=== PATIENT | female | born 1990 | race American Indian/Alaskan Native ===

== ENCOUNTER 2017-03-09 09:17 | Emergency (ER) | payer OTHER ==
[2017-03-09 09:55] LABS: Basophils % (Auto) 0.7 % (0.0-1.8); Eosinophils % (Auto) 3.3 % (0.0-4.3); Hematocrit 39.6 % (30.3-42.9); Hemoglobin 12.8 gm/dl (10.1-14.3); Mean Corpuscular HGB Conc 32 % (30-34); Mean Corpuscular Volume 76 fl (79-97); Platelet Count 181 K/mm3 (140-440); Red Blood Count 5.19 M/mm3 (3.65-5.03); Red Cell Distribution Width 14.9 % (13.2-15.2)
[2017-03-09 10:00] LABS: Mean Corpuscular Hemoglobin 25 pg (28-32)
[2017-03-09] MEDS ORDERED: ATROVENT IH ONE (10:02)
[2017-03-09] MEDS ORDERED: PROVENTIL IH ONE (10:02)
[2017-03-09 10:14] LABS: Anion Gap 18 mmol/L; BUN/Creatinine Ratio 8.88; Blood Urea Nitrogen 8 mg/dL (7-17); Carbon Dioxide 23 mmol/L (22-30); Chloride 104.3 mmol/L (98-107); Glucose 81 mg/dL (65-100); Potassium 4.3 mmol/L (3.6-5.0); Sodium 141 mmol/L (137-145)
--- NOTE | 2017-03-09 10:22 | XRay Report ---
ROUTINE CHEST, TWO VIEWS: HISTORY: Shortness of breath. The trachea, heart, mediastinal contour, lung worthy and bony thorax are unremarkable. IMPRESSION: Unremarkable chest x-ray.
[2017-03-09 15:41] VITALS: BP 129/85
--- NOTE | 2017-03-09 15:49 | Emergency Department Report ---
ED Asthma HPI - General Chief Complaint: Adult Asthma Stated Complaint: ASTHMA/CHEST PAIN/WHEEZING/COUGH Time Seen by Provider: 03/09/17 15:47 Source: patient, RN notes reviewed Mode of arrival: Ambulatory Limitations: No Limitations - History of Present Illness Initial Comments: This is a 26-year-old female. She is previously unknown to me. She does not have a local primary care doctor. The patient presents to the ER complaining of chest tightness, wheezing, cough and mucus production. This has been going on for the past 3 days. The tightness does not radiate to the back, arms and neck. There is no vomiting or diaphoresis. There is no leg pain. There is no leg swelling. No recent surgeries, no recent trips greater than 4 hours. Has an implantable control device, and reports that she is not . Reports her symptoms are similar to prior episodes of asthma exacerbation, and she also admits to consuming cannabis and tobacco. Last "asthma attack" was 3 years ago. MD Complaint: "asthma attack", shortness of breath, wheezing -: Gradual Asthma History: childhood onset Severity: moderate Context: ran out of meds, medication non-compliance, smoke exposure Associated Symptoms: dry cough, chest pain - Related Data Current Asthma Therapy: none Previous Rx's Medication Instructions Recorded Last Taken Type Albuterol Sulfate [Proair 90 mcg IH Q4HR PRN #2 aer.[email or web address] 03/09/17 Unknown Rx Respiclick] Benzonatate [Tessalon Perles] 100 mg PO Q8HR PRN #30 capsule 03/09/17 Unknown Rx Fluticasone [Flonase] 1 spray NS QDAY #1 bottle 03/09/17 Unknown Rx Ipratropium [place] [Atrovent Hfa] 12.9 gm IH Q4HR #2 hfa.aer.ad 03/09/17 Unknown Rx Allergies Allergy/AdvReac Type Severity Reaction Status Date / Time No Known Allergies Allergy Verified 03/09/17 09:29 ED Review of Systems ROS: Stated complaint: ASTHMA/CHEST PAIN/WHEEZING/COUGH Other details as noted in HPI Constitutional: denies: malaise Eyes: denies: vision change ENT: congestion Respiratory: shortness of breath, wheezing Cardiovascular: chest pain Gastrointestinal: denies: vomiting Genitourinary: denies: dysuria Musculoskeletal: denies: back pain Skin: denies: lesions Neurological: denies: weakness ED Past Medical Hx - Past Medical History Previous Medical History?: Yes Hx Asthma: Yes - Surgical History Past Surgical History?: No - Social History Smoking Status: Current Every Day Smoker Substance Use Type: Marijuana - Medications Home Medications: Home Medications Medication Instructions Recorded Confirmed Last Taken Type Albuterol Sulfate [Proair 90 mcg IH Q4HR PRN #2 aer.pow.ba 03/09/17 Unknown Rx Respiclick] Benzonatate [Tessalon Perles] 100 mg PO Q8HR PRN #30 capsule 03/09/17 Unknown Rx Fluticasone [Flonase] 1 spray NS QDAY #1 bottle 03/09/17 Unknown Rx Ipratropium [place] [Atrovent Hfa] 12.9 gm IH Q4HR #2 hfa.[email or web address] 03/09/17 Unknown Rx ED Physical Exam - General Limitations: No Limitations General appearance: alert, in no apparent distress - Head Head exam: Present: atraumatic, normocephalic - Eye Eye exam: Present: normal appearance, EOMI. Absent: nystagmus - ENT ENT exam: Present: normal exam, normal orophraynx, mucous membranes moist, normal external ear exam - Neck Neck exam: Present: normal inspection - Respiratory Respiratory exam: Present: normal lung sounds bilaterally. Absent: respiratory distress, wheezes, rales, rhonchi, stridor, chest wall tenderness, accessory muscle use, decreased breath sounds, prolonged expiratory - Cardiovascular Cardiovascular Exam: Present: regular rate, normal rhythm, normal heart sounds. Absent: bradycardia, tachycardia, irregular rhythm, systolic murmur, diastolic murmur, rubs, gallop - GI/Abdominal GI/Abdominal exam: Present: soft, normal bowel sounds. Absent: distended, tenderness, guarding, rebound, rigid, pulsatile mass - Extremities Exam Extremities exam: Present: normal inspection, full ROM, normal capillary refill. Absent: tenderness, pedal edema, joint swelling, calf tenderness - Back Exam Back exam: Present: normal inspection, full ROM. Absent: tenderness, CVA tenderness (R), CVA tenderness (L), muscle spasm, paraspinal tenderness, vertebral tenderness - Neurological Exam Neurological exam: Present: alert, oriented X3, normal gait, other (Extraocular movements intact. Tongue midline. No facial droop. Facial sensation intact to light touch in the V1, V2, V3 distribution bilaterally. 5 and 5 strength in 4 extremities.. Sensation is intact to light touch in 4 extremities.). Absent : motor sensory deficit - Psychiatric Psychiatric exam: Present: normal affect, normal mood - Skin Skin exam: Present: warm, dry, intact, normal color. Absent: rash ED Course Vital Signs 03/09/17 03/09/17 03/09/17 09:29 10:18 10:34 Temperature 99.4 F Pulse Rate 83 Pulse Rate [ 88 90 Bilateral] Respiratory 18 Rate Respiratory 16 16 Rate [Bilateral ] Blood Pressure 117/74 Blood Pressure [Right] O2 Sat by Pulse 100 Oximetry 03/09/17 15:40 Temperature Pulse Rate 64 Pulse Rate [ Bilateral] Respiratory 18 Rate Respiratory Rate [Bilateral ] Blood Pressure Blood Pressure 129/85 [Right] O2 Sat by Pulse 100 Oximetry ED Medical Decision Making - Lab Data Result diagrams: 03/09/17 09:43 03/09/17 09:43 Vital Signs 03/09/17 03/09/17 03/09/17 09:29 10:18 10:34 Temperature 99.4 F Pulse Rate 83 Pulse Rate [ 88 90 Bilateral] Respiratory 18 Rate Respiratory 16 16 Rate [Bilateral ] Blood Pressure 117/74 Blood Pressure [Right] O2 Sat by Pulse 100 Oximetry 03/09/17 15:40 Temperature Pulse Rate 64 Pulse Rate [ Bilateral] Respiratory 18 Rate Respiratory Rate [Bilateral ] Blood Pressure Blood Pressure 129/85 [Right] O2 Sat by Pulse 100 Oximetry Lab Results 03/09/17 03/09/17 Range/Units 09:43 09:43 WBC 5.0 (4.5-11.0) K/mm3 RBC 5.19 H (3.65-5.03) M/mm3 Hgb 12.8 (10.1-14.3) gm/dl Hct 39.6 (30.3-42.9) % MCV 76 L (79-97) fl MCH 25 L (28-32) pg MCHC 32 (30-34) % RDW 14.9 (13.2-15.2) % Plt Count 181 (140-440) K/mm3 Lymph % (Auto) 35.4 H (13.4-35.0) % [place] % (Auto) 9.8 H (0.0-7.3) % Eos % (Auto) 3.3 (0.0-4.3) % Baso % (Auto) 0.7 (0.0-1.8) % Lymph # 1.8 (1.2-5.4) K/mm3 [place] # 0.5 (0.0-0.8) K/mm3 Eos # 0.2 (0.0-0.4) K/mm3 Baso # 0.0 (0.0-0.1) K/mm3 Seg Neutrophils % 50.8 (40.0-70.0) % Seg Neutrophils # 2.5 (1.8-7.7) K/mm3 Sodium 141 (137-145) mmol/L Potassium 4.3 (3.6-5.0) mmol/L Chloride 104.3 (98-107) mmol/L Carbon Dioxide 23 (22-30) mmol/L Anion Gap 18 mmol/L BUN 8 (7-17) mg/dL Creatinine 0.9 (0.7-1.2) mg/dL Estimated GFR > 60 ml/min BUN/Creatinine Ratio 8.88 % Glucose 81 (65-100) mg/dL Calcium 9.0 (8.4-10.2) mg/dL Troponin T < 0.010 (0.00-0.029) ng/mL - EKG Data -: EKG Interpreted by Ct EKG shows normal: sinus rhythm, axis, intervals, QRS complexes, ST-T waves - Radiology Data Radiology results: report reviewed, image reviewed X-ray the chest is negative for acute disease - Medical Decision Making Differential diagnosis: Asthma, bronchitis, pneumonia Assessment and plan: 26-year-old female with resolved wheezing and chest tightness. She is afebrile with her showing vital signs. Symptoms have been present for 3 days. Low risk by LENARD score, low risk by heart score, low risk by well's criteria. Troponin negative, doubt acute coronary syndrome given clinical history. As per the [employer] clinical policy, myocardial infarction may be excluded with 1 set of troponins if symptoms haven't present for greater than 8 hours. The patient is instructed to discontinue tobacco consumption and cannabis consumption. She is suitable for discharge at this point in time, given resolution of wheezing, I do not believe she requires systemic steroids. Critical care attestation.: If time is entered above; I have spent that time in minutes in the direct care of this critically ill patient, excluding procedure time. ED Disposition Clinical Impression: Asthma Disposition: DC-01 TO HOME OR SELFCARE Is pt being admited?: No Does the pt Need Aspirin: No Condition: Stable Instructions: Asthma (ED) Additional Instructions: Take medications as directed. Follow up with a primary care doctor within the next 2 weeks. Discontinue consumption of tobacco, cannabis/marijuana. These agents are likely to increase symptoms. Return to the ER readily with new pain, worsened pain, migration of pain, fevers , chills, intractable nausea or vomiting, confusion, inability to tolerate liquid feeds, severe shortness of breath. Prescriptions: Albuterol Sulfate [Proair Respiclick] 90 mcg IH Q4HR PRN #2 aer.pow.ba PRN Reason: Wheezing Benzonatate [Tessalon Perles] 100 mg PO Q8HR PRN #30 capsule PRN Reason: Cough Fluticasone [Flonase] 1 spray NS QDAY #1 bottle Ipratropium [place] [Atrovent Hfa] 12.9 gm IH Q4HR #2 hfa.aer.ad Referrals: PRIMARY MD MARITO [Primary Care Provider] - 3-5 Days LEIF BORREGO MD [Staff Physician] - 3-5 Days Forms: Work/School Release Form(ED)
== END 2017-03-09 15:58 | disposition home or self-care (01) ==
LOC: ED 09:17
DX: J45.909 Unspecified asthma, uncomplicated (principal); F17.200 Nicotine dependence, unspecified, uncomplicated; F12.10 Cannabis abuse, uncomplicated
CPT/HCPCS: 36415; 71020; 80048; 84484; 85025; 93005; 93010; 94640

== ENCOUNTER 2019-03-15 07:29 | Emergency (ER) | payer SELFPAY ==
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
[2019-03-15] MEDS ORDERED: IBUPROFEN PO ONE (08:57)
[2019-03-15 09:16] VITALS: BP 140/90
== END 2019-03-15 09:16 | disposition home or self-care (01) ==
LOC: ED 07:29
DX: H10.32 Unspecified acute conjunctivitis, left eye (principal); J45.909 Unspecified asthma, uncomplicated; F17.200 Nicotine dependence, unspecified, uncomplicated

== ENCOUNTER 2019-08-06 18:31 | Emergency (ER) | payer MEDICAID ==
--- NOTE | 2019-08-06 19:27 | Emergency Department Report ---
Blank Doc - Documentation Documentation: 29-year-old female that presents with URI symptoms. This initial assessment/diagnostic orders/clinical plan/treatment(s) is/are subject to change based on patient's health status, clinical progression and re- assessment by fellow clinical providers in the ED. Further treatment and workup at subsequent clinical providers discretion. Patient/guardians urged not to elope from the ED as their condition may be serious if not clinically assessed and managed. Initial orders include: 1- Patient sent to [facility] for further evaluation and treatment 2- CXR
[2019-08-06 19:28] VITALS: BP 128/91
--- NOTE | 2019-08-06 19:54 | XRay Report ---
CHEST 2 VIEWS INDICATION: cough. COMPARISON: 03/09/2017. FINDINGS: Support devices: None. Heart: Within normal limits. Lungs/Pleura: No acute air space or interstitial disease. No significant pleural effusion. IMPRESSION: No acute findings. Signer Name: Dioni Mckeon MD Signed: 08/06/2019 7:50 PM Workstation Name: [id number]
--- NOTE | 2019-08-06 22:08 | Emergency Department Report ---
Minor Respiratory - HPI Chief Complaint: Upper Respiratory Infection Stated Complaint: FLU SYM 2WKS/SOB/BODY ACHES Time Seen by Provider: 08/06/19 19:26 Duration: 2 weeks Other History: 29-year-old -Maldivian female presents to the emergency room reporting fever, cough, vomiting, severe body aches and shortness of breath 2 weeks. Patient has a history of asthma. Patient complains of headache located frontal. She also reports greenish brownish nasal secretion. ED Review of Systems ROS: Stated complaint: FLU SYM 2WKS/SOB/BODY ACHES Other details as noted in HPI ED Past Medical Hx - Past Medical History Hx Asthma: Yes - Social History Smoking Status: Current Every Day Smoker Substance Use Type: None - Medications Home Medications: Home Medications Medication Instructions Recorded Confirmed Last Taken Type Albuterol Sulfate [Proair 90 mcg IH Q4HR PRN #2 aer.pow.ba 03/09/17 Unknown Rx Respiclick] Ipratropium [place] [Atrovent Hfa] 12.9 gm IH Q4HR #2 hfa.aer.ad 03/09/17 Unknown Rx Ofloxacin 0.3% [Ocuflox 0.3% opth] 1 - 2 drops OP TID #1 bottle 03/15/19 Unknown Rx Benzonatate [Tessalon Perles] 100 mg PO Q8HR PRN #30 capsule 08/06/19 Unknown Rx DOXYCYCLINE Hyclate [Vibramycin 100 mg PO Q12HR #28 capsule 08/06/19 Unknown Rx CAP] Fluticasone [Flonase] 1 spray NS QDAY #1 bottle 08/06/19 Unknown Rx Ibuprofen [Motrin 800 MG tab] 800 mg PO TID #30 tablet 08/06/19 Unknown Rx Minor Respiratory Exam - Exam General: Vital signs noted. No distress. Alert and acting appropriately. HEENT: Yes Moist Mucous Membranes, Yes Rhinorrhea, Yes Maxillary Tenderness, No Pharyngeal Erythema, No Pharyngeal Exudates, No Frontal Tenderness Neck: Yes Supple, No Adenopathy Lungs: Yes Good Air Exchange, Yes Cough, No Wheezes, No Ronchi, No Stridor, No Labored Respirations, No Retractions, No Use of Accessory Muscles, No Other Abnormal Lung Sounds Heart: Yes Regular, No Murmur Abdomen: Yes Normal Bowel Sounds, No Tenderness, No Peritoneal Signs Skin: No Rash, No Edema Neurologic: Alert and oriented, no deficits. Musculoskeletal: Unremarkable. ED Course Vital Signs 08/06/19 19:26 Temperature 98.8 F Pulse Rate 110 H Respiratory 20 Rate Blood Pressure 128/91 ED Medical Decision Making - Radiology Data Radiology results: report reviewed Patient: RODERICK HARDING MR#: [id number] : 1990 Acct:[id number] Age/Sex: 29 / F ADM Date: 08/06/19 Loc: ED Attending Dr: Ordering Physician: LINDEN RODRIGUEZ NP Date of Service: 08/06/19 Procedure(s): XR chest routine 2V Accession Number(s): [id number] cc: LINDEN RODRIGUEZ NP Fluoro Time In Minutes: CHEST 2 VIEWS INDICATION: cough. COMPARISON: 03/09/2017. FINDINGS: Support devices: None. Heart: Within normal limits. Lungs/Pleura: No acute air space or interstitial disease. No significant pleural effusion. IMPRESSION: No acute findings. Signer Name: Dioni Mckeon MD Signed: 08/06/2019 7:50 PM Workstation Name: [id number] Transcribed By: ES Dictated By: Dioni Mckeon MD Electronically Authenticated By: Dioni Mckeon MD Signed Date/Time: 08/06/191949 DD/ 45 TD/TT: - Medical Decision Making 29-year-old -Maldivian female presents to the emergency room reporting fever, cough, vomiting, severe body aches and shortness of breath 2 weeks. Patient has a history of asthma. Patient complains of headache located frontal. She also reports greenish brownish nasal secretion. Patient be treated for sinusitis. Critical care attestation.: If time is entered above; I have spent that time in minutes in the direct care of this critically ill patient, excluding procedure time. ED Disposition Clinical Impression: Sinusitis Disposition: DC-01 TO HOME OR SELFCARE Is pt being admited?: No Does the pt Need Aspirin: No Condition: Stable Instructions: Sinusitis (ED) Additional Instructions: Increase her fluid intake. Take medications as prescribed. Follow-up with her primary care provider if his symptoms persist or gets worse. Prescriptions: Fluticasone [Flonase] 1 spray NS QDAY #1 bottle Ibuprofen [Motrin 800 MG tab] 800 mg PO TID #30 tablet Benzonatate [Tessalon Perles] 100 mg PO Q8HR PRN #30 capsule PRN Reason: Cough DOXYCYCLINE Hyclate [Vibramycin CAP] 100 mg PO Q12HR #28 capsule Referrals: [facility] [Other] - 3-5 Days Forms: Work/School Release Form(ED), Accompanied Note
== END 2019-08-06 22:37 | disposition home or self-care (01) ==
LOC: ED 18:31
DX: J32.9 Chronic sinusitis, unspecified (principal); J45.909 Unspecified asthma, uncomplicated; F17.200 Nicotine dependence, unspecified, uncomplicated; Z79.899 Other long term (current) drug therapy
CPT/HCPCS: 71046